=== PATIENT | male | born 1985 | race Caucasian/White ===

== ENCOUNTER 2021-11-14 15:59 | Emergency (ER) | payer OTHER ==
[2021-11-14] MEDS ORDERED: Acetaminophen 500 MG TAB ONE (17:52)
[2021-11-14] MEDS ORDERED: Metoclopramide HCl 10 MG/2 ML VIAL ONE (17:52)
[2021-11-14] MEDS ORDERED: diphenhydrAMINE 50 MG/ML VIAL ONE (17:52)
== END 2021-11-14 18:32 | disposition home or self-care (01) ==
LOC: CSHERS 15:59
DX: G43.909 Migraine, unspecified, not intractable, without status migrainosus (principal); K21.9 Gastro-esophageal reflux disease without esophagitis; F17.220 Nicotine dependence, chewing tobacco, uncomplicated
CPT/HCPCS: 96374; 96375; J1200; J2765